=== PATIENT | male | born 1965 | race Hispanic/Latino ===

== ENCOUNTER 2017-08-24 15:04 | Emergency (ER) | payer BC, OTHER ==
[2017-08-24 15:05] VITALS: BMI 30.5
[2017-08-24 15:23] VITALS: BP 138/78; PULSE 79; RESP 16; TEMP 98.7; O2SAT 100
[2017-08-24] MEDS ORDERED: Sodium Chloride 0.9% 1,000 ML IV STA (16:34)
--- NOTE | 2017-08-24 16:34 | ED PDOC ---
HPI: Abdomen Time Seen by Provider: 08/24/17 15:41 Chief Complaint (Nursing): GI Problem Chief Complaint (Provider): Nausea and vomiting History Per: Patient Additional Complaint(s): 52 yo male, PMH of Anxiety, HTN, Hypothyroidism, presents to ED for evaluation of epigastric abdominal pain, vomiting and diarrhea since last night after eating a bagel and cream cheese. No fever and chills. Past Medical History Reviewed: Nursing Documentation, Vital Signs Vital Signs: Last Vital Signs Temp 98.7 F 08/24/17 15:21 Pulse 79 08/24/17 15:21 Resp 16 08/24/17 15:21 BP 138/78 08/24/17 15:21 Pulse Ox 100 08/24/17 16:34 - Medical History PMH: Anxiety, Diverticulitis, HTN, Hypothyroidism, Kidney Stones, Chronic Kidney Disease - Surgical History Surgical History: Cholecystectomy, Endoscopy - Family History Family History: States: No Known Family Hx - Living Arrangements Living Arrangements: With Family - Social History Current smoker - smoking cessation education provided: No Alcohol: Social Drugs: Denies - Home Medications Home Medications: Ambulatory Orders Medication Instructions Recorded Aspirin [Aspirin EC] 1 tab PO DAILY 02/19/16 Cholecalciferol (Vitamin D3) 1 tab PO DAILY 02/19/16 [Vitamin D3] Epinephrine [Epipen 2-Benjy] 1 dose SC PRN PRN 02/19/16 Levothyroxine [Synthroid] 1 tab PO DAILY 02/19/16 Multivit-Min/FA/Lycopen/Lutein 1 tab PO DAILY 02/19/16 [Centrum Silver Tablet] Hope Oil/[place]-3 Fatty Acids 1 cap PO DAILY 02/19/16 [Fish Oil 500 mg Softgel] Telmisartan/Hydrochlorothiazid 1 tab PO DAILY 02/19/16 [Micardis Hct 80-12.5 mg Tablet] Turmeric/Turmeric Root Extract 1 cap PO DAILY 02/19/16 [Turmeric 450-50 mg Capsule] Ondansetron ODT [Zofran ODT] 4 mg PO Q6 PRN #10 odt 08/24/17 - Allergies Allergies/Adverse Reactions: Allergies Allergy/AdvReac Type Severity Reaction Status Date / Time shellfish derived Allergy Intermediate RASH Verified 02/19/16 09:26 Review of Systems ROS Statement: Except As Marked, All Systems Reviewed And Found Negative Gastrointestinal: Positive for: Nausea, Vomiting, Abdominal Pain, Diarrhea Physical Exam - Reviewed Nursing Documentation Reviewed: Yes Vital Signs Reviewed: Yes - Physical Exam Appears: Positive for: Well, Non-toxic, No Acute Distress Head Exam: Positive for: ATRAUMATIC, NORMAL INSPECTION, NORMOCEPHALIC Skin: Positive for: Normal Color, Warm, DRY Eye Exam: Positive for: EOMI, Normal appearance, PERRL ENT: Positive for: Normal ENT Inspection Neck: Positive for: Normal, Painless ROM Cardiovascular/Chest: Positive for: Regular Rate, Rhythm Respiratory: Positive for: CNT, Normal Breath Sounds Gastrointestinal/Abdominal: Positive for: Normal Exam, Bowel Sounds, Soft. Negative for: Tenderness, Distended, Guarding Back: Positive for: Normal Inspection Extremity: Positive for: Normal ROM Neurologic/Psych: Positive for: Alert, Oriented - Laboratory Results Result Diagrams: 08/24/17 17:00 08/24/17 17:00 - ECG O2 Sat by Pulse Oximetry: 100 Medical Decision Making Medical Decision Making: IV access established and treatment initiated with IVF, Zofran, and pepcid diagnostics ordered labs resulted and reviewed with pt who demonstrated full understanding. Pt doing well on re-eval, abdomen soft non tender and non distended. Stable for discharge at this time Disposition - Clinical Impression Clinical Impression: Gastroenteritis - Patient ED Disposition Is Patient to be Admitted: No - Disposition Disposition: Routine/Home Disposition Time: 18:27 Condition: STABLE Prescriptions: Ondansetron ODT [Zofran ODT] 4 mg PO Q6 PRN #10 odt PRN Reason: Nausea/Vomiting Instructions: Gastroenteritis (ED) Forms: [facility] ([place]) - POA Present On Arrival: None
[2017-08-24 17:16] LABS: BASO % 0.3 % (0.0-2.0); EOS % 0.5 % (0.0-4.0); LYMPH # 0.9 K/uL (1.0-4.3); LYMPH % 9.1 % (20.0-40.0); MEAN CELL VOLUME 91.5 fl (80.0-94.0); MEAN CORPUSCULAR HGB CONC 32.8 g/dL (33.0-37.0); MEAN PLATELET VOLUME 8.2 fl (7.2-11.7); MONO # 0.5 K/uL (0.0-0.8); MONO % 5.4 % (0.0-10.0); NEUT # 8.2 K/uL (1.8-7.0); NEUT % 84.7 % (50.0-75.0); PLATELET COUNT 223 K/uL (130-400); RED CELL DISTRIBUTION WIDTH 14.6 % (11.5-14.5); WHITE BLOOD COUNT 9.7 K/uL (4.8-10.8)
[2017-08-24 17:38] LABS: ALB/GLOB RATIO 1.3 (1.0-2.1); ALKALINE PHOSPHATASE 76 U/L (38-126); ALT/SGPT 68 U/L (21-72); AMYLASE 79 U/L (30-110); AST/SGOT 50 U/L (17-59); BILIRUBIN,TOTAL 0.5 mg/dl (0.2-1.3); BLOOD UREA NITROGEN 20 mg/dl (9-20); CALCIUM 9.5 mg/dL (8.4-10.2); CARBON DIOXIDE 24 mmol/L (22-30); CHLORIDE 101 mmol/L (98-107); GFR AFRICAN-AMERICAN > 60; GLUCOSE,RANDOM 164 mg/dL (75-110); LIPASE 144 U/L (23-300); POTASSIUM 4.2 MMOL/L (3.6-5.0); SODIUM 139 mmol/l (132-148)
[2017-08-24 19:21] LABS: BASOPHIL 1 % (0-2); EOSINOPHIL 6 % (0-7); NEUTROPHIL 63 % (42-75); REACTIVE LYMPHOCYTES 1 % (0-0); TOTAL CELLS COUNTED 100
[2017-08-24 19:22] LABS: GIANT PLATELETS PRESENT; LARGE PLATELETS PRESENT
--- NOTE | 2017-08-25 07:31 | CARD ---
APPROVED REPORT EKG Measurement Heart [id number] <Conclusion> Normal sinus rhythm Normal ECG
== END 2017-08-24 18:35 | disposition home or self-care (01) ==
LOC: H.ER 15:04
DX: K52.9 Noninfective gastroenteritis and colitis, unspecified (principal); F41.9 Anxiety disorder, unspecified; I12.9 Hypertensive chronic kidney disease with stage 1 through stage 4 chronic kidney disease, or unspecified chronic kidney disease; Z79.82 Long term (current) use of aspirin
CPT/HCPCS: 80053; 82150; 83690; 84484; 85025; 93005; 96374; 99283; J2405; J7040